=== PATIENT | male | born 1940 | race Caucasian/White ===

== ENCOUNTER 2017-03-11 03:29 | Inpatient (IN) | payer BC ==
--- NOTE | ~2017-03-11 | DS ---
Discharge Summary [facility] [address] [place]. [address] NAME: DOUGLAS CHATTERJEE : 38 STATUS : DIS IN PAT#: [id number] AGE: 76 ADM/REG DATE : 03/11/17 MR#: [id number] REPORT SERV DATE: 03/23/17 DICTATED BY: TOMAS GALAVIZ DATE: 03/23/17 REPORT STATUS : Draft TRANSCRIBED BY: MODL DATE: 03/23/17 ADMISSION DATE: 03/11/2017 DISCHARGE DATE: 03/12/2017 DISCHARGE DIAGNOSES: 1. Acute pulmonary embolus. 2. Hypoxemia. 3. Chronic atrial fibrillation. 4. Chronic systolic heart failure. 5. Tremors and unsteady gait. Question parkinsonian like. 6. Hypothyroidism. 7. Chronic kidney disease stage 3. Most recent creatinine 1.27. 8. History of coronary artery disease, coronary artery bypass grafting. 9. History of diabetes type 2. DISCHARGE MEDICATIONS: Discharge medicines are as follows. Eliquis 5 mg p.o. twice a day, prescription written; aspirin 81 mg daily; Coreg 6.25 mg twice a day; digoxin 0.125 mg daily; Proscar 5 mg daily; Neurontin 300 mg three times a day, NovoLog insulin 8 units with meals and 25 units of Lantus insulin at bedtime; Synthroid 100 mcg daily; Requip 1.5 mg at bedtime; simvastatin 40 mg at bedtime, Restoril 30 mg at bedtime; Demadex 50 mg twice a day; potassium chloride 20 mEq daily, [place] 5/325 one tablet every six hours p.r.n. for pain. HISTORY OF PRESENT ILLNESS: A 76-year-old male, presented as a transfer from [facility] with chest pain and shortness of breath, found to have an acute pulmonary embolus. Please see the initial H and P of Dr. Carlo Martinez as the patient was admitted to the Hospitalist Service for further evaluation and treatment. The plan, the patient had been on Coumadin as an outpatient, but had developed this embolism, so initially, I placed on Lovenox therapy, lab work was ordered and followed. CONTINUATION IN HOSPITAL COURSE: I began seeing the patient the following day on 03/11/2017 where a decision was made to switch his anticoagulation to Eliquis. In review of [facility], I found his ejection fraction was quite low, 20%, and he also had some tremor like activities that were parkinsonian like on physical exam. I have recommended to the patient that he have an outpatient neurology appointment for followup in regard to this. He initially had been placed on oxygen therapy. This was not able to be weaned down and he qualified for home oxygen, health home, and home physical therapy. He tolerated the switch to Eliquis well and was felt safe for discharge to home on 03/12/2017. The above described medications, home O2, to follow up with his primary care next week, and referral for outpatient neurology appointment. The patient was in agreement with this plan going forward. Questions were answered extensively. YESICA/VICENTE Tomas Discharge Summary [address] [address] NAME: DOUGLAS CHATTERJEE : 39 STATUS : DIS IN PAT#: [id number] AGE: 76 ADM/REG DATE : 03/11/17 MR#: [id number] REPORT SERV DATE: 03/23/17 DICTATED BY: TOMAS GALAVIZ [facility] DATE: 03/23/17 REPORT STATUS : Draft TRANSCRIBED BY: VICENTE DATE: 03/23/17 Hakan Galaviz NP / [id number] CC: Ehsan Ga M.D.
--- NOTE | ~2017-03-11 | HP ---
History And Physical [facility] [address] [place]. [address] NAME: DOUGLAS MUÑIZ : 38 STATUS : ADM Eugenia PAT#: [id number] AGE: 76 ADM/REG DATE : 03/11/17 MR#: [id number] REPORT SERV DATE: 03/11/17 DICTATED BY: CARLO ENRIQUEZ DATE: 03/11/17 REPORT STATUS : Draft TRANSCRIBED BY: MODL DATE: 03/11/17 DATE OF ADMISSION: 03/11/2017 This is a patient I had accepted in transfer from [facility] after speaking with Dr. Marin. Briefly, this is a 76-year-old male who presented to the ER there according to the physician I spoke to with history of chest pain and shortness of breath for three days. There, the chest x-ray was normal. His BNP was 370, and D-dimer was elevated at 800. CT was performed. The CTA showed filling defects in the subsegmental segment of the left lower lobe pulmonary artery. There were also moderate pleural effusions. His troponin was 0.05. The patient was transferred to [facility] for further evaluation and management. The patient is already on anticoagulation for atrial fibrillation and had an INR of 2.1 there. He was given a shot of Lovenox in the therapeutic dose and then sent to [facility]. At the time of my evaluation, Mr. Muñiz denied any chest pain. He continued to have shortness of breath although I feel there was a functional component to his symptoms as well. He does have a movement disorder already recorded in the past from [facility]. He denied any palpitations or orthopnea. He had no cough, hemoptysis, night sweats, or weight loss. He did not have any recent falls or any loss of consciousness. No history of recent fevers, chills, nausea, vomiting, diarrhea, or dysuria. No history of hematemesis, hematochezia, or hematuria. No other history of recent travel or exposures other than those mentioned above. PAST MEDICAL HISTORY: Significant for history of atrial fibrillation, on medications and status post pacemaker placement. He is on chronic anticoagulation with warfarin. He does have a history of coronary artery disease with CABG in the past, history of diabetes mellitus, chronic pain, chronic kidney disease stage 3, systolic heart failure with an ejection fraction of 20%. He has restless legs syndrome and hypothyroidism as well. SOCIAL HISTORY: He does not smoke, drink, or use recreational drugs. FAMILY HISTORY: Noncontributory. MEDICATIONS: At home were reviewed by me in the chart today and reordered by me. REVIEW OF SYSTEMS: As in history of present illness. All other systems were reviewed in detail and quite unremarkable. PHYSICAL EXAMINATION: GENERAL: This is a pleasant 76-year-old, not in any acute distress. HEENT: His head is atraumatic and normocephalic. He is alert, awake, oriented to time, History And Physical [address] [address] NAME: DOUGLAS MUÑIZ : 39 STATUS : ADM Eugenia PAT#: [id number] AGE: 76 ADM/REG DATE : 03/11/17 MR#: [id number] REPORT SERV DATE: 03/11/17 DICTATED BY: CARLO ENRIQUEZ DATE: 03/11/17 REPORT STATUS : Draft TRANSCRIBED BY: VICENTE DATE: 03/11/17 place, and person. His pupils are equal, reacting to light and accommodating. External ocular muscles are intact. Membranes are moist and pink. Sclerae are nonicteric. NECK: Supple with no jugular venous distention, lymphadenopathy, or thyromegaly. LUNGS: Clear to auscultation with no wheezes, rubs, or crackles. HEART: Heart sounds are regular with no murmurs, rubs, or gallops. ABDOMEN: Soft, nontender. Bowel sounds are present. EXTREMITIES: Show trace pitting lower extremity edema. Otherwise, without any cyanosis or clubbing. NEUROLOGIC: Grossly intact. No focal sensory or motor deficits. Higher functions appear intact. VITAL SIGNS: His vital signs prior to transfer showed a heart rate of 97, respirations were 20 a minute, blood pressure was 127/61, oxygen saturations were 99% on room air. LAB DATA: All data which accompanied the patient from [facility] was reviewed by me in the chart today. CTA report was also reviewed. IMPRESSION: 1. Acute pulmonary embolism in a subsegmental left lower lobe pulmonary artery. 2. Chest pain possibly secondary to acute pulmonary embolism. 3. Atrial fibrillation with pacemaker placement on chronic anticoagulation. 4. Coronary artery disease with coronary artery bypass graft. 5. Poorly-controlled diabetes mellitus. 6. Chronic pain. 7. Chronic kidney disease stage 3. 8. Systolic heart failure with an ejection fraction of 20%. 9. Restless legs syndrome. 10.Hypothyroidism. 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 PLAN: We will admit Mr. Muñiz to the Hospitalist Service with telemetry for a 24-hour observation period. His subsegmental pulmonary embolism is quite small and would normally be started on anticoagulation and sent home. Trouble is he was on warfarin and he has developed this embolism. It is unclear if it is chronic or acute, but to Lovenox for now. Re-evaluate him in the morning with fresh labs and decide on other forms of oral anticoagulation, possibly Eliquis. We will also follow troponin to rule out acute coronary syndrome for his chest pain. Can also start him on blood sugar control with given subcutaneously. We will continue his Lantus. We will also check his TSH for now and continue all other medications and treatments. I have discussed the above plans with the patient. His questions were answered, and he is agreeable to the above recommendations. Hospitalist Service will be following him during his stay. /VICENTE Carlo Enriquez M.D. History And Physical [address] [address] NAME: DOUGLAS MUÑIZ : 38 STATUS : ADM Eugenia PAT#: [id number] AGE: 76 ADM/REG DATE : 03/11/17 MR#: [id number] REPORT SERV DATE: 03/11/17 DICTATED BY: CARLO ENRIQUEZ DATE: 03/11/17 REPORT STATUS : Draft TRANSCRIBED BY: VICENTE DATE: 03/11/17 / [id number] CC: Ehsan Dove M.D.
[~2017-03-11 03:29] MED LIST: ASAB PO; C2 PO; COREG6 PO; DEMA100 PO; FLOMAX4 PO; LAN125 PO; LEVEMIR SC; LIDODERM TOP; MICRO-K10 MEQ PO; NEUR300 PO; NORCO1 TA1 PO; NOVOLOG SC; NOVOLOG SL; PROSCAR5 PO; REQUIP5 PO; RESTORIL30 MG PO; SPIRO25 PO; SYN1 PO; ZOCOR40 PO
[2017-03-11] MEDS ORDERED: LANTUS SC (04:26)
[2017-03-11] MEDS ORDERED: KLOR-CON M2020 MEQ PO (04:38)
[2017-03-11 08:24] LABS: BASOPHILS 0.2 %; BASOPHILS ABSOLUTE 0.03 10/3/uL (0.0-0.16); EOSINOPHILS 1.6 %; HEMATOCRIT 39.6 % (40.0-51.0); HEMOGLOBIN 12.8 g/dL (13.6-17.8); IMMATURE GRANULOCYTES 0.4 %; IMMATURE GRANULOCYTES ABSOLUTE 0.05 10/3/uL (0.0-0.11); LYMPHOCYTES 14.9 %; LYMPHOCYTES ABSOLUTE 1.87 10/3/uL (0.67-4.30); MEAN CORPUS HGB CONC 32.3 g/dL (32.0-36.0); MEAN CORPUSCULAR HEMOGLOB 32.7 pg (26.0-34.0); MEAN PLATELET VOLUME 10.5 fL (9.2-13.0); MONOCYTES 5.9 %; MONOCYTES ABSOLUTE 0.74 10/3/uL (0.21-1.20); NEUTROPHILS ABSOLUTE 9.67 10/3/uL (2.02-8.40); PLATELET COUNT 168 10/3/uL (150-400); RBC DISTRIBUTION WIDTH 14.5 % (12.0-16.0); RED CELL COUNT 3.91 10/6/uL (4.7-6.1); WHITE BLOOD CELLS 12.6 10/3/uL (4.5-10.5)
[2017-03-11 08:31] LABS: MANUAL DIFF NO %; MEAN CORPUSCULAR VOLUME 101.3 fL (80-100)
[2017-03-11 08:33] LABS: PROTIME (NOT ORD) 22.3 SEC (12.0-14.5)
[2017-03-11 08:45] LABS: A/G RATIO 0.7 (0.7-1.9); ALBUMIN 3.2 G/DL (3.5-5.0); ALKALINE PHOSPHATASE 59 U/L (45-117); BUN (BLOOD UREA NITROGEN) 22 MG/DL (6-23); CALCIUM, SERUM 8.5 MG/DL (8.5-10.4); CHLORIDE, SERUM 104 MMOL/L (96-112); CO2 (CARBON DIOXIDE) 27 MMOL/L (24-34); CREATININE 1.25 MG/DL (0.70-1.30); GFR AFRICAN AMERICAN 64 ML/MIN (>=60); GFR NON AFRICAN AMERICAN 55 ML/MIN (>=60); GLOBULIN 4.3 G/DL (2.5-4.1); GLUCOSE, SERUM 120 MG/DL (60-99); PHOSPHORUS, SERUM 2.4 MG/DL (2.5-4.5); POTASSIUM, SERUM 4.2 MMOL/L (3.5-5.3); SGOT(AST) 25 U/L (5-40); SGPT(ALT) 17 U/L (5-65); SODIUM, SERUM 139 MMOL/L (135-148); TOTAL PROTEIN 7.5 G/DL (6.0-8.5); TROPONIN I 0.06 NG/ML (<0.05)
[2017-03-11 15:53] LABS: ULTRASENSITIVE TSH 1.81 MCIU/ML (0.358-3.740)
[2017-03-11 15:55] LABS: TROPONIN I 0.06 NG/ML (<0.05)
[2017-03-12 05:24] LABS: BUN (BLOOD UREA NITROGEN) 23 MG/DL (6-23); CHLORIDE, SERUM 102 MMOL/L (96-112); CO2 (CARBON DIOXIDE) 25 MMOL/L (24-34); CREATININE 1.27 MG/DL (0.70-1.30); GFR AFRICAN AMERICAN 63 ML/MIN (>=60); GFR NON AFRICAN AMERICAN 54 ML/MIN (>=60); GLUCOSE, SERUM 106 MG/DL (60-99); SODIUM, SERUM 137 MMOL/L (135-148)
[2017-03-12 05:44] LABS: BASOPHILS 0.3 %; BASOPHILS ABSOLUTE 0.03 10/3/uL (0.0-0.16); EOSINOPHILS 2.7 %; EOSINOPHILS ABSOLUTE 0.26 10/3/uL (0.0-0.53); HEMATOCRIT 37.2 % (40.0-51.0); HEMOGLOBIN 12.1 g/dL (13.6-17.8); IMMATURE GRANULOCYTES 0.3 %; IMMATURE GRANULOCYTES ABSOLUTE 0.03 10/3/uL (0.0-0.11); LYMPHOCYTES 22.4 %; LYMPHOCYTES ABSOLUTE 2.17 10/3/uL (0.67-4.30); MEAN CORPUS HGB CONC 32.5 g/dL (32.0-36.0); MEAN CORPUSCULAR VOLUME 101.4 fL (80-100); MEAN PLATELET VOLUME 10.9 fL (9.2-13.0); MONOCYTES 8.1 %; MONOCYTES ABSOLUTE 0.78 10/3/uL (0.21-1.20); NEUTROPHILS 66.2 %; NEUTROPHILS ABSOLUTE 6.41 10/3/uL (2.02-8.40); PLATELET COUNT 161 10/3/uL (150-400); RBC DISTRIBUTION WIDTH 14.4 % (12.0-16.0); RED CELL COUNT 3.67 10/6/uL (4.7-6.1); WHITE BLOOD CELLS 9.7 10/3/uL (4.5-10.5)
[2017-03-12 05:46] LABS: MANUAL DIFF NO %
[2017-03-12] MEDS ORDERED: ELIQUIS 5 MG TAB5 MG PO (15:58)
== END 2017-03-12 18:24 | disposition home or self-care (01) | DRG 176 ==
LOC: CDU2 03:29 → 5NO 18:31
PROVIDERS: Internal Medicine Pulmonary Disease; Nurse Practitioner Family
DX: I26.99 Other pulmonary embolism without acute cor pulmonale (principal); I50.22 Chronic systolic (congestive) heart failure; I48.2 Chronic atrial fibrillation; E11.22 Type 2 diabetes mellitus with diabetic chronic kidney disease; N18.3 Chronic kidney disease, stage 3 (moderate); G25.81 Restless legs syndrome; E03.9 Hypothyroidism, unspecified; G25.79 Other drug induced movement disorders; I25.10 Atherosclerotic heart disease of native coronary artery without angina pectoris; T50.995A Adverse effect of other drugs, medicaments and biological substances, initial encounter; Z95.0 Presence of cardiac pacemaker; Z79.01 Long term (current) use of anticoagulants; Z95.1 Presence of aortocoronary bypass graft
CPT/HCPCS: 80048; 80053; 82962; 83735; 84100; 84443; 84484; 85025; 85610; 87040; 87449; 94640; 97162-GP; 97165-GO; A9270-GY; G0378